=== PATIENT | male | born 1990 | race Caucasian/White ===

== ENCOUNTER 2018-06-16 08:54 | Emergency (ER) | payer SELFPAY ==
[2018-06-16] MEDS ORDERED: MORPHINE 4 MG/ML SYR ONE (09:31)
[2018-06-16] MEDS ORDERED: ONDANSETRON 4 MG/2 ML VIAL ONE (09:32)
[2018-06-16] MEDS ORDERED: NA CHLORIDE 0.9% 1,000 ML ONE (09:32)
[2018-06-16 09:52] LABS: Absolute Lymphocytes (CBC) 2.2 K/uL (0.7-4.9); Absolute Monocytes 0.5 K/uL (0.1-1.3); Absolute Neutrophil 4.5 K/uL (1.8-8.0); Basophils % 0.7 % (0-1.3); Eosinophils % 1.1 % (0-4.4); Hematocrit 44.1 % (39.6-49.0); MCH 30.9 pg (27.0-35.0); MCV 88.5 fL (80-100); MPV 9.1 fL (7.6-11.3); Monocytes % 6.8 % (3.3-12.3); RBC Red Blood Cell Count 4.98 M/uL (4.33-5.43)
[2018-06-16 09:53] LABS: Potassium 3.4 mmol/L (3.5-5.1)
--- NOTE | 2018-06-16 10:07 | RAD REPORT ---
EXAM DESCRIPTION: CT - Stone Protocol - 06/16/2018 9:29 am CLINICAL HISTORY: Flank pain. FLANK PAIN COMPARISON: No comparisons TECHNIQUE: Axial images were obtained without oral or IV contrast. Lack of contrast limits solid org an and vascular assessment. The [id number] spans the entirety of the system partially obscuring uppermost abdomen and lung bases. Coronal reformatted images were obtained and reviewed. All CT scans are performed using dose optimization technique as appropriate and may include automated exposure control or mA/KV adjustment according to patient size. FINDINGS: The lower lung correia are clear. Imaged portions of the liver and spleen show no suspicious findings on non-contrast imaging. The panc reas and adrenal glands are normal. No pathologic lymphadenopathy in the abdomen or pelvis. 1 mm calculus is present at the left UVJ along the bladder mucosa with mild left hydronephrosis. Vinayak tional 2 mm calculus is seen midpole left kidney. Areas of medullary hyperdensity also seen bilateral ly. No bowel obstruction, free air, free fluid or abscess. Normal appendix noted. No significant bony abnormality. IMPRESSION: 1 mm calculus left UVJ with mild left hydronephrosis. Additional left nephrolithiasis as detailed.
[2018-06-16] MEDS ORDERED: KETOROLAC 30 MG/ML INJ ONE (10:14)
[2018-06-16] MEDS ORDERED: MAGNESIUM SULFATE 1 gm IVPB 1 GM/100 ML BAG IV ONE (10:20)
[2018-06-16] MEDS ORDERED: TAMSULOSIN 0.4 MG SR CAP ONE (10:20)
[2018-06-16] MEDS ORDERED: CEFTRIAXONE/SWI 1gm 1 GM/10 ML SYR ONE (10:20)
--- NOTE | 2018-06-16 10:30 | ER ---
Nurse's Notes [facility] Name: Ishan Chou Age: 27 yrs Sex: Male : 1990 Arrival Date: 06/16/2018 Time: 08:57 Bed 15 Private MD: None, None Diagnosis: Calculus of kidney and ureter Presentation: 06/16 09:08 Presenting complaint: Patient states: woke up this morning with left lower back pain iw radiates to LLQ, pain 10/10, denies hx of kidney stones, denies blood in urine, no vomiting or diarrhea. Transition of care: patient was not received from another setting of care. Onset of symptoms was June 16, 2018. Risk Assessment: Do you want to hurt yourself or someone else? Patient reports no desire to harm self or others. Initial Sepsis Screen: Does the patient meet any 2 criteria? No. Patient's initial sepsis screen is negative. Does the patient have a suspected source of infection? No. Patient's initial sepsis screen is negative. Care prior to arrival: None. 09:08 Method Of Arrival: Ambulatory iw 09:08 Acuity: LAURIE 3 iw Historical: - Allergies: 09:10 Sulfa (Sulfonamide Antibiotics); iw - Home Meds: 09:10 None [Active]; iw - PMHx: 09:10 None; iw - PSHx: 09:10 None; iw - Immunization history:: Adult Immunizations up to date. - Social history:: Smoking status: Patient/guardian denies using tobacco. - Ebola Screening: : Patient negative for fever greater than or equal to 101.5 degrees Fahrenheit, and additional compatible Ebola Virus Disease symptoms Patient denies exposure to infectious person Patient denies travel to an Ebola-affected area in the 21 days before illness onset No symptoms or risks identified at this time. Screenin:23 Abuse screen: Denies threats or abuse. Nutritional screening: No deficits noted. la1 Tuberculosis screening: No symptoms or risk factors identified. Fall Risk None identified. Assessment: 09:22 General: Appears uncomfortable, Behavior is cooperative. Pain: Complains of pain in la1 anterior aspect of left lateral abdomen and posterior aspect of left lateral abdomen Pain currently is 10 out of 10 on a pain scale. Neuro: Level of Consciousness is awake, alert, obeys commands, Oriented to person, place, time, situation. Cardiovascular: Capillary refill < 3 seconds Patient's skin is warm and dry. Respiratory: Airway is patent Respiratory effort is even, unlabored, Respiratory pattern is regular, symmetrical. GI: Bowel sounds present X 4 quads. Abd is soft and non tender X 4 quads. Reports diarrhea, vomiting. Vital Signs: 09:10 BP 157 / 109; Pulse 84; Resp 16; Temp 98.3; Pulse Ox 100% on R/A; Weight 68.04 kg; iw Height 5 ft. 5 in. (165.10 cm); Pain 10/10; 10:22 BP 123 / 71; Pulse 84; Resp 16; Temp 98.8; Pulse Ox 98% on R/A; la1 09:10 Body Mass Index 24.96 (68.04 kg, 165.10 cm) iw ED Course: 08:57 Patient arrived in ED. mr 08:57 None, None is Private Physician. mr 09:09 Triage completed. iw 09:10 Arm band placed on. iw 09:11 Albertina [facility]-C [facility]. kb 09:11 Sunday Lucas MD is Attending Physician. kb 09:23 Call light in reach. Side rails up X 1. la1 09:23 No provider procedures requiring assistance completed. Inserted saline lock: 20 gauge la1 in right antecubital area, using aseptic technique. Blood collected. 09:29 CT Stone Protocol In Process Unspecified. EDMS 09:36 Kameron Croft, KRISTI is Primary Nurse. la1 10:32 Dane Vee MD is Referral Physician. kb 10:53 IV discontinued, intact, bleeding controlled, No redness/swelling at site. Pressure la1 dressing applied. Administered Medications: 09:36 Drug: Zofran 4 mg Route: IVP; Site: right antecubital; la1 10:53 Follow up: Response: No adverse reaction; Pain is decreased la1 09:36 Drug: NS 0.9% 1000 ml Route: IV; Rate: 1000 ml; Site: right antecubital; la1 10:22 Follow up: IV Status: Completed infusion la1 09:37 Drug: morphine 4 mg Route: IVP; Site: right antecubital; la1 10:53 Follow up: Response: No adverse reaction; Pain is decreased la1 10:22 Drug: TORadol 30 mg Route: IVP; Site: right antecubital; la1 10:53 Follow up: Response: No adverse reaction; Pain is decreased la1 10: Drug: Rocephin - (cefTRIAXone) 1 grams Route: IVPB; Infused Over: 30 mins; Site: right la1 antecubital; 53 Follow up: IV Status: Completed infusion la1 10: Drug: Magnesium Sulfate 1 grams Route: IVPB; Infused Over: 30 mins; Site: right la1 antecubital; :52 Follow up: IV Status: Completed infusion la1 10: Drug: Flomax 0.4 mg Route: PO; la1 10:52 Follow up: Response: No adverse reaction la1 Outcome: 10:29 Discharge ordered by MD. eid 10:53 Discharged to home ambulatory. la1 10:53 Condition: stable 10:53 Discharge instructions given to patient, Instructed on discharge instructions, follow up and referral plans. medication usage, Demonstrated understanding of instructions, follow-up care, medications, Prescriptions given X 5 10:53 Patient left the ED. la1 Signatures: Dispatcher [employer] EDMS Albertina Oh, LAUNDRY PRICING CLERK-C LAUNDRY PRICING CLERK-Manju Copeland mr Gisele Guillaume, RN Kameron Nicolas RN RN la1
--- NOTE | 2018-06-16 10:30 | EDPHYS ---
Physician Documentation [facility] Name: Ishan Chou Age: 27 yrs Sex: Male : 1990 Arrival Date: 06/16/2018 Time: 08:57 Bed 15 Private MD: None, None ED Physician Sunday Lucas HPI: 06/16 10:25 This 27 yrs old Male presents to ER via Ambulatory with complaints of kb Abdominal Pain, Back Pain. 10:26 The patient complains of pain in the left flank. The pain radiates to the left lower kb quadrant. Onset: The symptoms/episode began/occurred this morning. Modifying factors: The symptoms are alleviated by nothing. the symptoms are aggravated by nothing. Associated signs and symptoms: The patient has no apparent associated signs or symptoms. Severity of pain: At its worst the pain was moderate in the emergency department the pain is unchanged. The patient has not experienced similar symptoms in the past. The patient has not recently seen a physician. Historical: - Allergies: 09:10 Sulfa (Sulfonamide Antibiotics); iw - Home Meds: 09:10 None [Active]; iw - PMHx: 09:10 None; iw - PSHx: 09:10 None; iw - Immunization history:: Adult Immunizations up to date. - Social history:: Smoking status: Patient/guardian denies using tobacco. - Ebola Screening: : Patient negative for fever greater than or equal to 101.5 degrees Fahrenheit, and additional compatible Ebola Virus Disease symptoms Patient denies exposure to infectious person Patient denies travel to an Ebola-affected area in the 21 days before illness onset No symptoms or risks identified at this time. ROS: 10:28 Constitutional: Negative for fever, chills, and weight loss, Cardiovascular: Negative kb for chest pain, palpitations, and edema, Respiratory: Negative for shortness of breath, cough, wheezing, and pleuritic chest pain, : Negative for injury, bleeding, discharge, and swelling, MS/Extremity: Negative for injury and deformity, Skin: Negative for injury, rash, and discoloration, Neuro: Negative for headache, weakness, numbness, tingling, and seizure. 10:28 Abdomen/GI: Positive for abdominal pain. 10:28 Back: Positive for flank pain, on the left. Exam: 10:28 Constitutional: This is a well developed, well nourished patient who is awake, alert, kb and in no acute distress. Head/Face: Normocephalic, atraumatic. Chest/axilla: Normal chest wall appearance and motion. Nontender with no deformity. No lesions are appreciated. Cardiovascular: Regular rate and rhythm with a normal S1 and S2. No gallops, murmurs, or rubs. Normal PMI, no JVD. No pulse deficits. Respiratory: Lungs have equal breath sounds bilaterally, clear to auscultation and percussion. No rales, rhonchi or wheezes noted. No increased work of breathing, no retractions or nasal flaring. Abdomen/GI: Soft, non-tender, with normal bowel sounds. No distension or tympany. No guarding or rebound. No evidence of tenderness throughout. Back: No spinal tenderness. No costovertebral tenderness. Full range of motion. Skin: Warm, dry with normal turgor. Normal color with no rashes, no lesions, and no evidence of cellulitis. MS/ Extremity: Pulses equal, no cyanosis. Neurovascular intact. Full, normal range of motion. Neuro: Awake and alert, GCS 15, oriented to person, place, time, and situation. Cranial nerves II-XII grossly intact. Motor strength 5/5 in all extremities. Sensory grossly intact. Cerebellar exam normal. Normal gait. Vital Signs: 09:10 BP 157 / 109; Pulse 84; Resp 16; Temp 98.3; Pulse Ox 100% on R/A; Weight 68.04 kg; iw Height 5 ft. 5 in. (165.10 cm); Pain 10/10; 10:22 BP 123 / 71; Pulse 84; Resp 16; Temp 98.8; Pulse Ox 98% on R/A; la1 09:10 Body Mass Index 24.96 (68.04 kg, 165.10 cm) iw MDM: 09:11 Patient medically screened. kb 10:26 Data reviewed: vital signs, nurses notes. Data interpreted: Pulse oximetry: on room air kb is 98 %. Interpretation: normal. 10:29 Counseling: I had a detailed discussion with the patient and/or guardian regarding: the kb historical points, exam findings, and any diagnostic results supporting the discharge/admit diagnosis, lab results, radiology results, the need for outpatient follow up, a family practitioner, a urologist, to return to the emergency department if symptoms worsen or persist or if there are any questions or concerns that arise at home. 06/16 09:16 Order name: CBC with Diff; Complete Time: 10:01 kb 06/16 09:16 Order name: Basic Metabolic Panel; Complete Time: 09:56 kb 06/16 09:16 Order name: CT Stone Protocol; Complete Time: 10:08 kb 06/16 10:26 Order name: Urine Dipstick--Ancillary (enter results) bd 06/16 09:16 Order name: IV Saline Lock; Complete Time: 09:22 kb 06/16 09:16 Order name: Labs collected and sent; Complete Time: 09:22 kb 06/16 09:16 Order name: Urine Dipstick-Ancillary (obtain specimen); Complete Time: 10:22 kb Administered Medications: 09:36 Drug: Zofran 4 mg Route: IVP; Site: right antecubital; la1 10:53 Follow up: Response: No adverse reaction; Pain is decreased la1 09:36 Drug: NS 0.9% 1000 ml Route: IV; Rate: 1000 ml; Site: right antecubital; la1 10:22 Follow up: IV Status: Completed infusion la1 09:37 Drug: morphine 4 mg Route: IVP; Site: right antecubital; la1 10:53 Follow up: Response: No adverse reaction; Pain is decreased la1 10:22 Drug: TORadol 30 mg Route: IVP; Site: right antecubital; la1 10:53 Follow up: Response: No adverse reaction; Pain is decreased la1 10:22 Drug: Rocephin - (cefTRIAXone) 1 grams Route: IVPB; Infused Over: 30 mins; Site: right la1 antecubital; 10:53 Follow up: IV Status: Completed infusion la1 10:22 Drug: Magnesium Sulfate 1 grams Route: IVPB; Infused Over: 30 mins; Site: right la1 antecubital; 10:52 Follow up: IV Status: Completed infusion la1 10:22 Drug: Flomax 0.4 mg Route: PO; la1 10:52 Follow up: Response: No adverse reaction la1 Disposition: 06/17 10:43 Co-signature as Attending Physician, Sunday Lucas MD. ma2 Disposition: 06/16/18 10:29 Discharged to Home. Impression: Calculus of kidney and ureter. - Condition is Stable. - Discharge Instructions: Kidney Stones, [id number], Dietary Guidelines to Help Prevent Kidney Stones. - Prescriptions for Tylenol- Codeine #3 300-30 mg Oral Tablet - take 1 tablet by ORAL route every 6 hours As needed; 15 tablet. Zofran 4 mg Oral Tablet - take 1 tablet by ORAL route every 6 hours As needed; 20 tablet. Flomax 0.4 mg Oral Capsule, Sust. Release 24 hr - take 1 capsule by ORAL route once daily 1/2 hour following the same meal each day; 10 capsule. Diclofenac Sodium 75 mg Oral Tablet, Delayed Release (E.C.) - take 1 tablet by ORAL route 2 times per day As needed; 30 tablet. Macrobid 100 mg Oral Capsule - take 1 capsule by ORAL route every 12 hours for 7 days; 14 capsule. - Medication Reconciliation Form, Thank You Letter, Antibiotic Education, Prescription Opioid Use, Work release form form. - Follow up: Emergency Department; When: As needed; Reason: Worsening of condition. Follow up: Private Physician; When: 2 - 3 days; Reason: Recheck today's complaints, Continuance of care, Re-evaluation by your physician. Follow up: Dane Vee MD; When: 1 - 2 days; Reason: Recheck today's complaints, Continuance of care, Re-evaluation by your physician. Signatures: Dispatcher [employer] EDAlbertina Castillo, MANUFACTURING FINANCE MANAGER-C MANUFACTURING FINANCE MANAGER-Ckb Gisele Guillaume RN RN iw Kameron Croft RN RN la1 Sunday Lucas MD MD ma2 Corrections: (The following items were deleted from the chart) 06/16 10:32 10:29 06/16/2018 10:29 Discharged to Home. Impression: Calculus of kidney and ureter. kb Condition is Stable. Forms are Medication Reconciliation Form, Thank You Letter, Antibiotic Education, Prescription Opioid Use. Follow up: Emergency Department; When: As needed; Reason: Worsening of condition. Follow up: Private Physician; When: 2 - 3 days; Reason: Recheck today's complaints, Continuance of care, Re-evaluation by your physician. kb 10:53 10:32 06/16/2018 10:29 Discharged to Home. Impression: Calculus of kidney and ureter. la1 Condition is Stable. Discharge Instructions: Kidney Stones, [id number], Dietary Guidelines to Help Prevent Kidney Stones. Prescriptions for Tylenol-Codeine #3 300-30 mg Oral Tablet - take 1 tablet by ORAL route every 6 hours As needed; 15 tablet, Zofran 4 mg Oral Tablet - take 1 tablet by ORAL route every 6 hours As needed; 20 tablet, Flomax 0.4 mg Oral Capsule, Sust. Release 24 hr - take 1 capsule by ORAL route once daily 1/2 hour following the same meal each day; 10 capsule, Diclofenac Sodium 75 mg Oral Tablet, Delayed Release (E.C.) - take 1 tablet by ORAL route 2 times per day As needed; 30 tablet, Macrobid 100 mg Oral Capsule - take 1 capsule by ORAL route every 12 hours for 7 days; 14 capsule. and Forms are Medication Reconciliation Form, Thank You Letter, Antibiotic Education, Prescription Opioid Use. Follow up: Emergency Department; When: As needed; Reason: Worsening of condition. Follow up: Private Physician; When: 2 - 3 days; Reason: Recheck today's complaints, Continuance of care, Re-evaluation by your physician. Follow up: Dane Vee; When: 1 - 2 days; Reason: Recheck today's complaints, Continuance of care, Re-evaluation by your physician. kb
[2018-06-16 10:37] LABS: Urine Blood 3+ (NEG); Urine Glucose NEGATIVE (NEG); Urine Protein TRACE (NEG); Urine Specific Gravity 1.025 (1.005-1.030)
== END 2018-06-16 10:53 | disposition home or self-care (01) ==
LOC: ER 08:54
DX: N20.2 Calculus of kidney with calculus of ureter (principal); Z88.2 Allergy status to sulfonamides
CPT/HCPCS: 36415; 74176; 76377; 80048; 81003; 85025; 96361; 96365; 96368; 96375; 99284; J0696; J2405; J3475; J7030